=== PATIENT | female | born 1965 | race Hispanic/Latino ===

== ENCOUNTER 2020-11-05 20:16 | Emergency (ER) | payer SELFPAY ==
[2020-11-05] MEDS ORDERED: Albuterol 200 PUFF (6.7GM INHALER) ONE (20:48)
[2020-11-05] MEDS ORDERED: Acetaminophen 500 MG TAB ONE (21:29)
[2020-11-05] MEDS ORDERED: Dexamethasone 4 mg/ml Vial ONE (21:29)
[2020-11-05 21:37] LABS: #Lymphocytes 1.9 thou/uL (1.20-3.40); #Monocytes 0.3 thou/uL (0.11-0.59); #Neutrophils 4.2 thou/uL (1.40-6.50); %Basophils 0.6 % (0.0-1.0); %Eosinophils 0.1 % (0.0-10.0); %Lymphocytes 28.8 % (21.0-51.0); %Monocytes 4.9 % (0.0-10.0); %Neutrophils 65.7 % (42.0-75.0); Hemoglobin 14.8 g/dL (12.0-16.0); Mean Corpuscular HGB CONC 32.2 g/dL (32.0-36.0); Mean Corpuscular Hemoglobin 30.9 pg (27.0-31.0); Mean Corpuscular Volume 96.1 fL (78.0-98.0); Mean Platelet Volume 7.7 fL (7.4-10.4); Platelet Count 186 thou/uL (130-400); Red Blood Cell (RBC) Count 4.78 mill/uL (4.20-5.40); White Blood Cell (WBC) Count 6.4 thou/uL (4.8-10.8)
[2020-11-05] MEDS ORDERED: Diazepam 10 MG/2 ML SYRINGE ONE (21:50)
[2020-11-05] MEDS ORDERED: Enoxaparin Sodium 40 MG/0.4 ML SYRINGE ONE (21:50)
[2020-11-05 21:54] LABS: ALT (SGPT) 231 U/L (8-55); AST (SGOT) 241 U/L (5-34); Albumin 3.9 g/dL (3.5-5.0); Alkaline Phosphatase 73 U/L (40-110); Anion Gap 17 mmol/L (10-20); BUN (Urea Nitrogen) 11 mg/dL (9.8-20.1); Bilirubin, Total 0.3 mg/dL (0.2-1.2); Calc. Creatinine Clearance 0 mL/min (70-130); Calcium 8.5 mg/dL (7.8-10.44); Carbon Dioxide 22 mmol/L (22-29); Chloride 100 mmol/L (98-107); Globulin 4.3 g/dL (2.4-3.5); Glucose 138 mg/dL (70-105); Potassium 4.2 mmol/L (3.5-5.1); Protein, Total 8.2 g/dL (6.0-8.3); Sodium 135 mmol/L (136-145)
--- NOTE | 2020-11-05 21:56 | CT ---
CT CHEST WITHOUT CONTRAST: Date: 11-05-2020 FINDINGS: Spiral CT of the chest shows fairly significant coverage of patchy ground glass infiltrates throughou t the lungs bilaterally, all lobes. Findings are worse as one travels towards the lower lobes. There are no effusions. The heart is mildly enlarged. No mediastinal mass was seen. Several small nodes are seen in the mediastinum but none are particularly extensive in number or size. Scans into the upper abdomen shows diffuse fatty infiltration of the liver. Both adrenal glands appea r normal. IMPRESSION: Moderately severe coverage of patchy ground glass infiltrates throughout the lungs. An infectious david ology is likely, and in the correct clinical context, Covid should be a consideration. Findings discussed with Dr. Garcia at [id number] on 11-05-2020. POS: HOME
[2020-11-05] MEDS ORDERED: Sodium Chloride 0.9% 100 ML ONE (22:12)
[2020-11-05] MEDS ORDERED: Cefepime 2 GM VIAL ONE (22:12)
== END 2020-11-05 22:56 | disposition short-term general hospital (02) ==
LOC: BURERS 20:16
DX: U07.1 COVID-19 (principal); J12.89 Other viral pneumonia; R09.02 Hypoxemia
CPT/HCPCS: 36415; 71250; 80053; 83880; 84484; 85025; 87040; 87804; 93005; 94760; 96365; 96372; 96375; J0692; J1100; J1650; J3360; J3490